=== PATIENT | female | born 1985 | race African-American/Black ===

== ENCOUNTER 2025-03-11 18:57 | Emergency (ER) | payer OTHER, BC, SELFPAY ==
--- NOTE | ~2025-03-11 | XR_ITS ---
CLINICAL HISTORY: pain 3 views lumbar spine Comparison: None provided Findings: Normal vertebral body alignment. No acute fractures or dislocation. No significant degenerative change. IUD projecting over the pelvis. Moderate/large colorectal stool burden. IMPRESSION: No acute findings. This document has been electronically signed by: Homer Granados MD on 03/11/2025 20:26:25
--- NOTE | ~2025-03-11 | XR_ITS ---
CLINICAL HISTORY: pain 3 views thoracic spine Comparison: None provided Findings: Normal alignment. No acute fractures or dislocation. No significant degenerative change. IMPRESSION: No acute findings. This document has been electronically signed by: Homer Granados MD on 03/11/2025 20:29:34
[2025-03-11 19:09] VITALS: BP 113/67; PULSE 83; RESP 16; TEMP 36.7; O2SAT 100; BMI 34.4
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
[2025-03-11 21:50] VITALS: BP 122/67; PULSE 75; RESP 16; TEMP 37; O2SAT 98
[2025-03-11 21:58] VITALS: BP 122/67; PULSE 75; RESP 16; TEMP 37; O2SAT 98
== END 2025-03-11 21:59 | disposition home or self-care (01) ==
LOC: HO.ED 21:47
PROVIDERS: Emergency Provider Emergency Medicine
DX: Z04.1 Encounter for examination and observation following transport accident (principal); M79.18 Myalgia, other site
CPT/HCPCS: 72070; 72100; 99283; 99284

== ENCOUNTER → 2025-03-11 19:15 | Outpatient (BNV) | payer SELFPAY | PROVIDERS: Visit Provider Radiology Diagnostic Radiology | DX: M54.50 Low back pain, unspecified (principal); M54.6 Pain in thoracic spine | CPT/HCPCS: 72070; 72100 ==

== ENCOUNTER 2025-03-14 22:27 | Emergency (ER) | payer BC, OTHER, SELFPAY ==
[2025-03-14 22:49] VITALS: BP 111/55; PULSE 88; RESP 16; TEMP 36.2; O2SAT 100; BMI 34.2
--- NOTE | 2025-03-15 00:40 | MHC.EDTECH ---
Patient became agitated when vitals were being taken. So vitals were not completed by this PCT.
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
[2025-03-15 03:19] VITALS: BP 115/74; PULSE 80; RESP 16; TEMP 36.8; O2SAT 100
[2025-03-15 03:20] VITALS: BP 115/74; PULSE 80; RESP 16; TEMP 36.8; O2SAT 100
== END 2025-03-15 03:21 | disposition home or self-care (01) ==
PROVIDERS: Emergency Provider Emergency Medicine
DX: M54.16 Radiculopathy, lumbar region (principal); M54.50 Low back pain, unspecified
CPT/HCPCS: 99283